=== PATIENT | female | born 1995 | race Caucasian/White ===

== ENCOUNTER → 2018-06-15 | Outpatient (CLI) | payer OTHER ==
[2018-06-15 13:41] LABS: HCT 42.2 % (34.0-46.0); HGB 14.1 gm/dL (11.4-16.0); MCH 31.4 pg (25.0-35.0); MCHC 33.5 g/dL (31.0-37.0); MCV 93.8 fL (80.0-100.0); Mean Platelet Volume 7.6; Platelet Count 219 k/uL (150-450); RBC 4.51 m/uL (3.80-5.40); RDW 12.2 % (11.5-15.5); WBC 14.1 k/uL (3.8-10.6)
[2018-06-15 13:51] LABS: Glucose 66 mg/dL (74-99)
--- NOTE | 2018-06-15 14:23 | US ---
EXAMINATION TYPE: Transabdominal DATE OF EXAM: 09/19/17 COMPARISON: NONE CLINICAL HISTORY: Z36 CONFIRM DATES. EXAM PERFORMED: Transabdominal (TA) EXAM MEASUREMENTS: GESTATIONAL AGE / DATING Physician Established: Not yet established Dates by LMP: (14 weeks/0 days) EDC: 12/14/18 Dates by First Scan: No previous this is first scan Dates by Current Scan for: (14 weeks/0 days) EDC: 12/14/18 MATERNAL ANATOMY Uterus: 13.6 x 6.3 x 7.3cm Right Ovary: 2.2 x 1.4 x 1.2cm Left Ovary: 1.9 x 1.3 x 1.2 Post CDS / Adnexa: wnl Presence of free fluid: no Presence of subchorionic bleed: no GESTATION / SURVEY CRL: 8.0cm (14 weeks/0 days) Yolk Sac (normal less than 6mm): not seen Heart Rate: 158 bpm Rhythm: Normal IUP: Viable IUP Date of LMP: 03/09/18 IMPRESSION: 1. Single intrauterine gestation estimated at 14 weeks 0 days gestation based on crown-rump length. 2. Cardiac activity measures 158 bpm.
[2018-06-15 19:51] LABS: HIV P24 AG Non-Reactive (Non-Reactive)
[2018-06-15 19:52] LABS: HIV 1 AB Non-Reactive (Non-Reactive); HIV AB P24 Non-Reactive (Non-Reactive)
== END | disposition home or self-care (01) ==
LOC: RADUSWWP 12:16
PROVIDERS: ATTEND Obstetrics & Gynecology
DX: Z34.01 Encounter for supervision of normal first pregnancy, first trimester (principal); Z3A.14 14 weeks gestation of pregnancy
CPT/HCPCS: 76801; 82565; 82947; 85027; 86762; 86780; 86850; 86900; 86901; 87340; 87390

== ENCOUNTER 2018-07-25 06:21 | Emergency (ER) | payer OTHER ==
[2018-07-25 06:25] VITALS: RESP 18; TEMP 98.1
[2018-07-25] MEDS ORDERED: SODIUM CHLORIDE 0.9% 1,000 ML IV STA (06:26)
--- NOTE | 2018-07-25 06:26 | ED ---
Abdominal Pain HPI - General Source: patient Mode of arrival: ambulatory Limitations: no limitations <Mandy Michel - Last Filed: 07/25/18 07:19> <Edi Armenta - Last Filed: 07/25/18 10:05> - General Chief Complaint: Abdominal Pain Stated Complaint: Abd Pain 20 wks Time Seen by Provider: 07/25/18 06:26 - History of Present Illness Initial Comments: Katharine is a pleasant 23-year-old female currently 19 weeks and days who presents to the ED this morning for evaluation of right-sided flank pain. Patient reports she began having intermittent pain throughout the day yesterday associated with some nausea but no vomiting. She reports that the pain came and went throughout the day yesterday she cannot identify any causative or relieving factors to the pain. She reports that tonight the pain has become constant and unbearable which prompted her to come to the ER for evaluation. She denies any history of kidney stones or kidney infections. She denies any history of gallstones. The pain is not postprandial. Pain is not associated with any dysuria hematuria or urinary frequency. (Mandy Michel) - Related Data Home Medications Medication Instructions Recorded Confirmed [id number] Acid 1 cap PO DAILY 07/25/18 07/25/18 [-U Capsule (formulary)] Allergies Allergy/AdvReac Type Severity Reaction Status Date / Time No Known Allergies Allergy Verified 07/25/18 07:06 Review of Systems ROS Other: All systems not noted in ROS Statement are negative. <Mandy Michel - Last Filed: 07/25/18 07:19> ROS Other: All systems not noted in ROS Statement are negative. <Edi Armenta - Last Filed: 07/25/18 10:05> ROS Statement: Those systems with pertinent positive or pertinent negative responses have been documented in the HPI. Past Medical History Past Medical History: No Reported History History of Any Multi-Drug Resistant Organisms: None Reported Past Surgical History: No Surgical Hx Reported Past Psychological History: No Psychological Hx Reported Smoking Status: Current every day smoker Past Alcohol Use History: None Reported Past Drug Use History: None Reported <Mandy Michel - Last Filed: 07/25/18 07:19> General Exam Limitations: no limitations <Mandy Michel - Last Filed: 07/25/18 07:19> <Edi Armenta - Last Filed: 07/25/18 10:05> - General Exam Comments Initial Comments: Physical Exam GENERAL: Patient is well-developed and well-nourished. Patient is nontoxic, appears uncomfortable HENT: Normocephalic, Atraumatic. EYES: PERRL, EOMI PULMONARY: Unlabored respirations. No audible rales rhonchi or wheezing was noted. CARDIOVASCULAR: There is a regular rate and rhythm without any murmurs gallops or rubs. ABDOMEN: Minimal tenderness to deep palpation of right upper quadrant and right flank This palpable and level ofUterus is palpable at level of umbilicus SKIN: Skin is clear with no lesions or rashes and otherwise unremarkable. : Deferred NEUROLOGIC: Patient is alert and oriented x3. Moving all extremities spontaneously MUSCULOSKELETAL: Normal extremities with adequate strength and full range of motion. No lower extremity swelling or edema. No calf tenderness. PSYCHIATRIC: Normal psychiatric evaluation. Limitations: no limitations (Mandy Michel) Vital Signs 07/25/18 06:22 Temperature 98.1 F Pulse Rate 65 Respiratory 18 Rate Blood Pressure 98/59 O2 Sat by Pulse 100 Oximetry Medical Decision Making - Lab Data Result diagrams: 07/25/18 06:35 <Mandy Michel - Last Filed: 07/25/18 07:19> - Lab Data Result diagrams: 07/25/18 06:35 07/25/18 06:35 <Edi Armenta - Last Filed: 07/25/18 10:05> - Medical Decision Making She was seen and evaluated history was obtained from the patient patient's currently 19 weeks 5 days with right upper quadrant abdominal pain Labs and US ordered Patient declined pain medication Patient care signed out to Dr. Armenta at shift change who will follow up on labs and imaging (Mandy Michel) Patient's care is signed out awaiting ultrasound and reevaluation. Did reevaluate the patient, she is resting comfortably, stable vitals, abdominal examination does not reveal any uterine tenderness, no right upper quadrant tenderness, mild right CVA and flank tenderness. Urinalysis is contaminated, there is 19 WBCs, but 26 squ with occasional bacteria. Urine culture obtained. Patient does have leukocytosis, uncertain if this is related to or infectious process, white count 15.4, stable hemoglobin, normal CMP with normal liver function tests. heart tones 140. Ultrasound shows some right hydronephrosis, likely secondary to , no other acute findings, normal gallbladder wall, no secondary signs of infection. I did discuss case with the patient's furnace cleaner, Dr. Barrientos, both feel patient is stable for discharge and outpatient follow-up at this time. Urine culture is obtained, Dr. Barrientos will follow-up urine culture, no antibiotics at this time. Patient has an appointment within the next week. She will return to emergency department with worsening or changing symptoms. (Edi Armenta) - Lab Data Lab Results 07/25/18 07/25/18 07/25/18 Range/Units 06:35 06:35 06:35 WBC 15.4 H (3.8-10.6) k/uL RBC 4.36 (3.80-5.40) m/uL Hgb 13.9 (11.4-16.0) gm/dL Hct 41.0 (34.0-46.0) % MCV 94.1 (80.0-100.0) fL MCH 32.0 (25.0-35.0) pg MCHC 34.0 (31.0-37.0) g/dL RDW 12.3 (11.5-15.5) % Plt Count 224 (150-450) k/uL Neutrophils % 91 % Lymphocytes % 6 % Monocytes % 2 % Eosinophils % 1 % Basophils % 0 % Neutrophils # 14.1 H (1.3-7.7) k/uL Lymphocytes # 0.9 L (1.0-4.8) k/uL Monocytes # 0.2 (0-1.0) k/uL Eosinophils # 0.1 (0-0.7) k/uL Basophils # 0.0 (0-0.2) k/uL ESR 13 (0-20) mm/hr Sodium 136 L (137-145) mmol/L Potassium 4.4 (3.5-5.1) mmol/L Chloride 106 (98-107) mmol/L Carbon Dioxide 24 (22-30) mmol/L Anion Gap 6 mmol/L BUN 11 (7-17) mg/dL Creatinine 0.46 L (0.52-1.04) mg/dL Est GFR (CKD-EPI)AfAm >90 (>60 ml/min/1.73 sqM) Est GFR (CKD-EPI)NonAf >90 (>60 ml/min/1.73 sqM) Glucose 94 (74-99) mg/dL Calcium 9.3 (8.4-10.2) mg/dL Total Bilirubin 0.5 (0.2-1.3) mg/dL AST 15 (14-36) U/L ALT 20 (9-52) U/L Alkaline Phosphatase 46 (38-126) U/L C-Reactive Protein 6.2 (<10.0) mg/L Total Protein 6.6 (6.3-8.2) g/dL Albumin 3.9 (3.5-5.0) g/dL Amylase 64 (30-110) U/L Lipase 35 (23-300) U/L Urine Color Yellow Urine Appearance Cloudy H (Clear) Urine pH 7.5 (5.0-8.0) Ur Specific [place] 1.017 (1.001-1.035) Urine Protein Trace H (Negative) Urine Glucose (UA) Negative (Negative) Urine Ketones Negative (Negative) Urine Blood Negative (Negative) Urine Nitrite Negative (Negative) Urine Bilirubin Negative (Negative) Urine Urobilinogen <2.0 (<2.0) mg/dL Ur Leukocyte Esterase Moderate H (Negative) Urine RBC 3 (0-5) /hpf Urine WBC 19 H (0-5) /hpf Ur Squamous Epith Cells 26 H (0-4) /hpf Urine Bacteria Few H (None) /hpf Urine Mucus Rare H (None) /hpf Disposition <Mandy Michel P - Last Filed: 07/25/18 07:19> Is patient prescribed a controlled substance at d/c from ED?: No Time of Disposition: 10:05 <Edi Armenta - Last Filed: 07/25/18 10:05> Clinical Impression: Abdominal pain affecting Disposition: HOME SELF-CARE Condition: Good Instructions (If sedation given, give patient instructions): Abdominal Pain in (ED) Referrals: None,Stated [Primary Care Provider] - 1-2 days Lesli Barrientos DO [Doctor of Osteopathic Medicine] - 1-2 days
[2018-07-25 06:58] LABS: Basophils % (A) 0 %; Eosinophils # (A) 0.1 k/uL (0-0.7); Eosinophils % (A) 1 %; HGB 13.9 gm/dL (11.4-16.0); Lymphocytes # (A) 0.9 k/uL (1.0-4.8); Lymphocytes % (A) 6 %; MCV 94.1 fL (80.0-100.0); Mean Platelet Volume 7.1; Monocytes # (A) 0.2 k/uL (0-1.0); Monocytes % (A) 2 %; Neutrophils # (A) 14.1 k/uL (1.3-7.7); Neutrophils % (A) 91 %; Platelet Count 224 k/uL (150-450); RBC 4.36 m/uL (3.80-5.40); RDW 12.3 % (11.5-15.5); WBC 15.4 k/uL (3.8-10.6)
[2018-07-25 07:06] LABS: Appearance,Urine Cloudy (Clear); Bacteria,Urine Few /hpf; Bilirubin,Urine Negative (Negative); Blood,Urine Negative (Negative); Color,Urine Yellow; Glucose,Urine (UA) Negative (Negative); Ketones,Urine Negative (Negative); Leukocyte Esterase,Urine Moderate (Negative); Mucus,Urine Rare /hpf; Nitrite,Urine Negative (Negative); PH, Urine 7.5 (5.0-8.0); Protein,Urine Trace (Negative); RBC,Urine 3 /hpf (0-5); Specific Gravity,Urine 1.017 (1.001-1.035); Squamous Epithelial Cell,Urine 26 /hpf (0-4); Urobilinogen,Urine <2.0 mg/dL (<2.0); WBC,Urine 19 /hpf (0-5)
[2018-07-25 07:10] LABS: ALT 20 U/L (9-52); AST 15 U/L (14-36); Albumin 3.9 g/dL (3.5-5.0); Alkaline Phosphatase 46 U/L (38-126); Amylase 64 U/L (30-110); Anion Gap 6 mmol/L; Blood Urea Nitrogen 11 mg/dL (7-17); C Reactive Protein 6.2 mg/L (<10.0); Calcium 9.3 mg/dL (8.4-10.2); Carbon Dioxide 24 mmol/L (22-30); Chloride 106 mmol/L (98-107); Glucose 94 mg/dL (74-99); Lipase 35 U/L (23-300); Potassium 4.4 mmol/L (3.5-5.1); Sodium 136 mmol/L (137-145); Total Bilirubin 0.5 mg/dL (0.2-1.3); Total Protein 6.6 g/dL (6.3-8.2)
--- NOTE | 2018-07-25 08:23 | US ---
EXAMINATION TYPE: US abdomen complete DATE OF EXAM: 07/25/2018 COMPARISON: NONE CLINICAL HISTORY: RUQ abd pain - 19 wks . RUQ pain and nausea x 1 day, patient is 19 weeks pr egnant EXAM MEASUREMENTS: Liver Length: 16.4 cm Gallbladder Wall: 0.2 cm CBD: 0.2 cm Spleen: 11.3 cm Right Kidney: 11.3 x 4.9 x 5.2 cm Left Kidney: 10.6 x 4.7 x 4.6 cm Pancreas: wnl Liver: wnl Gallbladder: wnl Evidence for sonographic Jorge's sign: yes CBD: visualized portions wnl, limited by overlying bowel gas Spleen: measures wnl, appears prominent Right Kidney: mild hydronephrosis Left Kidney: wnl Upper IVC: wnl Abd Aorta: visualized portions wnl, distal portion obscured by overlying midline bowel gas is not evaluated on this ultrasound. IMPRESSION: 1. Mild to moderate hydronephrosis right kidney. 2. Mild hepatomegaly. 3. Positive Jorge sign. Gallbladder otherwise appears normal. 4. Abdomen ultrasound is otherwise unremarkable.
[2018-07-25 08:33] LABS: Erythrocyte Sedimentation Rate 13 mm/hr (0-20)
[2018-07-25] MEDS ORDERED: CEPHALEXIN 500 MG CAP PO STA (09:08)
[2018-07-25 10:11] VITALS: BP 133/77; PULSE 72
== END 2018-07-25 10:11 | disposition home or self-care (01) ==
LOC: EC 06:21
DX: O99.112 Other diseases of the blood and blood-forming organs and certain disorders involving the immune mechanism complicating pregnancy, second trimester (principal); D72.829 Elevated white blood cell count, unspecified; O99.89 Other specified diseases and conditions complicating pregnancy, childbirth and the puerperium; R11.0 Nausea; N13.30 Unspecified hydronephrosis; R82.71 Bacteriuria; O99.332 Smoking (tobacco) complicating pregnancy, second trimester; F17.200 Nicotine dependence, unspecified, uncomplicated; Z3A.19 19 weeks gestation of pregnancy
CPT/HCPCS: 36415; 76700; 80053; 81001; 82150; 83690; 85025; 85652; 86140; 87086; 96360; 99284

== ENCOUNTER 2018-12-18 06:10 | Inpatient (IN) | payer OTHER ==
[2018-12-18] MEDS ORDERED: LIDOCAINE 0.5% (PF) 5 MG/ML (50 ML SDV) SQ PRN (06:29)
[2018-12-18] MEDS ORDERED: METHYLERGONOVINE 0.2 MG/ML 1 ML AMP IM PRN (06:29)
[2018-12-18] MEDS ORDERED: CARBOPROST TROMETHAMINE 250 MCG/ML 1 ML AMP IM PRN (06:29)
[2018-12-18] MEDS ORDERED: OXYTOCIN 10 UNIT/ML 1 ML VIAL IM PRN (06:29)
[2018-12-18] MEDS ORDERED: TERBUTALINE 1 MG/ML VIAL SQ PRN (06:29)
[2018-12-18] MEDS ORDERED: OXYTOCIN 30 UNITS/500 ML NS 30 UNIT in SALINE 1 500ML.BAG IV SCH (06:30)
[2018-12-18 06:51] LABS: Basophils % (A) 0 %; Eosinophils # (A) 0.2 k/uL (0-0.7); Eosinophils % (A) 2 %; HCT 37.3 % (34.0-46.0); HGB 12.7 gm/dL (11.4-16.0); Lymphocytes # (A) 1.6 k/uL (1.0-4.8); Lymphocytes % (A) 11 %; MCH 31.3 pg (25.0-35.0); MCHC 34.1 g/dL (31.0-37.0); MCV 91.8 fL (80.0-100.0); Mean Platelet Volume 8.2; Monocytes # (A) 0.6 k/uL (0-1.0); Monocytes % (A) 4 %; Neutrophils # (A) 12.1 k/uL (1.3-7.7); Neutrophils % (A) 82 %; Platelet Count 183 k/uL (150-450); RBC 4.07 m/uL (3.80-5.40); RDW 13.1 % (11.5-15.5); WBC 14.8 k/uL (3.8-10.6)
[2018-12-18 06:57] VITALS: BMI 21.6
--- NOTE | 2018-12-18 07:18 | P.HPOB ---
History of Present Illness H&P Date: 12/18/18 Chief Complaint: induction of labor 23-year-old presents at 40 weeks and 4 days for induction of labor. Her cervix is 2-3 cm dilated, 80% effaced, and 0 station. She is rupert irregularly. heart tones are 130 with moderate variability and accelerations. Review of Systems All systems: negative Constitutional: Denies chills, Denies fever Eyes: denies blurred vision, denies pain Ears, nose, mouth and throat: Denies headache, Denies sore throat Cardiovascular: Denies chest pain, Denies shortness of breath Respiratory: Denies cough Gastrointestinal: Denies abdominal pain, Denies diarrhea, Denies nausea, Denies vomiting Genitourinary: Denies dysuria, Denies hematuria Musculoskeletal: Denies myalgias Integumentary: Denies pruritus, Denies rash Neurological: Denies numbness, Denies weakness Psychiatric: Denies anxiety, Denies depression Endocrine: Denies fatigue, Denies weight change Past Medical History Past Medical History: No Reported History Additional Past Medical History / Comment(s): Obstetrics history: This is her first and she's had care with me since the first trimester. Her blood type is AB+, antibodies negative, HIV nonreactive, hepatitis B negative, rubella immune, treponema antibody negative, abnormal 1 hour but normal 3 hour test, GBS negative. History of Any Multi-Drug Resistant Organisms: None Reported Past Surgical History: No Surgical Hx Reported Additional Past Surgical History / Comment(s): wisdom teeth Past Anesthesia/Blood Transfusion Reactions: No Reported Reaction Past Psychological History: No Psychological Hx Reported Smoking Status: Current every day smoker Past Alcohol Use History: None Reported Past Drug Use History: None Reported - Past Family History Mother Family Medical History: No Reported History Medications and Allergies Home Medications Medication Instructions Recorded Confirmed Type Dnz-Tocx-Bsgws Acid 1 cap PO DAILY 07/25/18 12/18/18 History [-U Capsule (formulary)] Allergies Allergy/AdvReac Type Severity Reaction Status Date / Time No Known Allergies Allergy Verified 12/18/18 06:29 Exam Osteopathic Statement: *. No significant issues noted on an osteopathic structural exam other than those noted in the History and Physical/Consult. Vital Signs Temp Pulse Resp BP Pulse Ox 12/18/18 06:42 97.2 F L 81 18 112/76 99 Intake and Output 12/17/18 12/18/18 12/18/18 22:59 06:59 14:59 Other: Weight 58.967 kg Heart: Regular rate and rhythm Lungs: Clear to auscultation bilaterally Abdomen: Soft, nontender Extremities: Negative Homans sign Results Result Diagrams: 12/18/18 06:35 Abnormal Lab Results - Last 24 Hours (Table) 12/18/18 Range/Units 06:35 WBC 14.8 H (3.8-10.6) k/uL Neutrophils # 12.1 H (1.3-7.7) k/uL Assessment and Plan (1) Normal labor Current Visit: Yes Status: Acute Code(s): O80 - ENCOUNTER FOR FULL-TERM UNCOMPLICATED DELIVERY; Z37.9 - OUTCOME OF DELIVERY, UNSPECIFIED SNOMED Code(s): 82907021 (2) Post-dates Current Visit: Yes Status: Acute Code(s): O48.0 - POST-TERM SNOMED Code(s): 51434741 Plan: 1. Induction of labor with amniotomy and Pitocin 2. Anticipate normal vaginal delivery
[2018-12-18] MEDS: LACTATED RINGERS 1,000 ML IV SCH ×2 (07:49→14:58)
[2018-12-18] MEDS ORDERED: BUTORPHANOL 1 MG/ML 1 ML VIAL IV PRN (07:51)
[2018-12-18] MEDS ORDERED: ACETAMINOPHEN TAB 500 MG TAB PO PRN (14:38)
[2018-12-18] MEDS ORDERED: SIMETHICONE 80 MG CHEWABLE PO PRN (18:00)
[2018-12-18] MEDS ORDERED: ACETAMINOPHEN TAB 325 MG TAB PO PRN (18:00)
[2018-12-18] MEDS ORDERED: OXYTOCIN 20 UNITS/1000 ML NS 1,000 ML IV SCH (18:00)
[2018-12-18] MEDS ORDERED: LANOLIN CREAM 5 GM TUBE TOPICAL PRN (18:00)
[2018-12-18] MEDS ORDERED: HYDROCORTISONE 2.5% RECTAL CREAM 30 GM TUBE RECTAL PRN (18:00)
[2018-12-18] MEDS ORDERED: ZOLPIDEM 5 MG TAB PO PRN (18:00)
[2018-12-18] MEDS ORDERED: BENZOCAINE/MENTHOL SPRAY 1 GM/SPRAY AEROSOL TOPICAL PRN (18:00)
[2018-12-18] MEDS ORDERED: WITCH HAZEL 1 EACH MED..PAD TOPICAL PRN (18:00)
[2018-12-18] MEDS ORDERED: diphenhydrAMINE 25 MG CAP PO PRN (18:00)
[2018-12-18] MEDS ORDERED: diphenhydrAMINE 50 MG CAP PO PRN (18:00)
[2018-12-18] MEDS ORDERED: diphenhydrAMINE 50 MG/ML 1 ML VIAL IVP PRN ×2 (18:00)
[2018-12-18] MEDS: SENNOSIDES-DOCUSATE SODIUM 1 EACH TAB PO SCH (20:00)
[2018-12-18] MEDS: IBUPROFEN 600 MG TAB PO PRN (20:00)
--- NOTE | 2018-12-19 03:22 | P.PROBDLV ---
Vaginal Delivery Note - . Vaginal Delivery Note: 23-year-old presents at 40 weeks and 4 days for induction of labor. Her cervix is 2-3 cm dilated, 80% effaced, and 0 station. She is rupert irregularly. heart tones are 130 with moderate variability and accelerations. Pitocin was started. Amniotomy was performed at 7:10 AM and clear fluid noted. She progressed throughout the day, and did get an epidural when she was uncomfortable. At one point during her labor she did have a prolonged decelera tion that resolved with intrauterine resuscitation: Position changes, IV fluids, oxygen. heart tones came back to 130s with moderate variability. She continued to labor without Pitocin. She was completely dilated at 1548. She pushed, and delivered a viable female infant over intact perineum under epidural anesthesia at 1727. Head delivered OA, anterior shoulder delivered with gentle downward guidance followed by posterior shoulder and rest of body. Nose and mouth bulb suctioned, cord clamped and cut, placed mother's abdomen. Apgars 9, 9, weight 6 lbs. 14 oz. Placenta delivered spontaneously, intact with three-vessel cord at 1730. Vagina, cervix, perineum inspected. Second-degree midline laceration was repaired with 2-0 Vicryl with 3-0 Vicryl. Estimated blood loss 200 mL. Mother and baby in stable condition.
[2018-12-19] MEDS: IBUPROFEN 600 MG TAB PO PRN ×2 (05:52→15:28)
[2018-12-19 06:55] LABS: Basophils % (A) 0 %; Eosinophils # (A) 0.1 k/uL (0-0.7); Eosinophils % (A) 0 %; HCT 30.8 % (34.0-46.0); HGB 10.3 gm/dL (11.4-16.0); Lymphocytes # (A) 1.4 k/uL (1.0-4.8); Lymphocytes % (A) 6 %; MCH 31.6 pg (25.0-35.0); MCHC 33.6 g/dL (31.0-37.0); Mean Platelet Volume 9.1; Monocytes % (A) 5 %; Neutrophils # (A) 18.6 k/uL (1.3-7.7); Neutrophils % (A) 87 %; Platelet Count 144 k/uL (150-450); RBC 3.27 m/uL (3.80-5.40); RDW 14.5 % (11.5-15.5); WBC 21.3 k/uL (3.8-10.6)
[2018-12-19 08:56] VITALS: RESP 18
[2018-12-19 16:30] VITALS: BP 106/70; PULSE 74; TEMP 98.4
[2018-12-19] MEDS: SENNOSIDES-DOCUSATE SODIUM 1 EACH TAB PO SCH (16:47)
== END 2018-12-19 18:58 | disposition home or self-care (01) | DRG 807 ==
LOC: 4FBP 06:10
PROVIDERS: ADMIT Obstetrics & Gynecology; ATTEND Obstetrics & Gynecology
PROC: 0KQM0ZZ Repair Perineum Muscle, Open Approach (ICD-10-PCS; principal; 2018-12-18)
PROC: 3E033VJ Introduction of Other Hormone into Peripheral Vein, Percutaneous Approach (ICD-10-PCS; principal; 2018-12-18)
PROC: 3E0R3NZ Introduction of Analgesics, Hypnotics, Sedatives into Spinal Canal, Percutaneous Approach (ICD-10-PCS; principal; 2018-12-18)
PROC: 10E0XZZ Delivery of Products of Conception, External Approach (ICD-10-PCS; principal; 2018-12-18)
PROC: 10907ZC Drainage of Amniotic Fluid, Therapeutic from Products of Conception, Via Natural or Artificial Opening (ICD-10-PCS; principal; 2018-12-18)
PROC: 00HU33Z Insertion of Infusion Device into Spinal Canal, Percutaneous Approach (ICD-10-PCS; principal; 2018-12-18)
DX: O48.0 Post-term pregnancy (principal); Z37.0 Single live birth; O70.1 Second degree perineal laceration during delivery; O99.334 Smoking (tobacco) complicating childbirth; F17.200 Nicotine dependence, unspecified, uncomplicated; Z3A.40 40 weeks gestation of pregnancy
CPT/HCPCS: 85025; 86850; 86900; 86901; 88307